=== PATIENT | male | born 1980 | race Caucasian/White ===

== ENCOUNTER 2017-02-23 14:48 | Emergency (ER) | payer OTHER ==
--- NOTE | 2017-02-23 15:11 | UC ---
Minor Trauma HPI - HPI Summary HPI Summary: 36 year old male presents with tailbone pain secondary to a fall. - History of Current Complaint Stated Complaint: FALL Time Seen by Provider: 02/23/17 15:09 Hx Obtained From: Patient Onset/Duration: Sudden Onset Severity Initially: Moderate Severity Currently: Moderate Pain Scale Used: 0-10 Numeric - 5 Mechanism Of Injury: Direct Blow Aggravating Factor(s): Nothing Alleviating Factor(s): Nothing - Allergies/Home Medications Allergies/Adverse Reactions: Allergies Allergy/AdvReac Type Severity Reaction Status Date / Time No Known Allergies Allergy Verified 02/23/17 15:12 PMH/Surg Hx/FS Hx/Imm Hx Previously Healthy: Yes - Surgical History Surgical History: None - Social History Substance Use Type: None Review of Systems Constitutional: Negative Skin: Negative Eyes: Negative ENT: Negative Respiratory: Negative Cardiovascular: Negative Gastrointestinal: Negative Genitourinary: Negative Motor: Negative Neurovascular: Negative Musculoskeletal: Other: - sacral pain Neurological: Negative Psychological: Negative All Other Systems Reviewed And Are Negative: Yes Physical Exam Triage Information Reviewed: Yes Vital Signs Reviewed: Yes Eye Exam: Normal ENT Exam: Normal Dental Exam: Normal Neck exam: Normal Neck: Positive: 1 Respiratory Exam: Normal Cardiovascular Exam: Normal Abdominal Exam: Normal Musculoskeletal: Positive: Other: - sacral/coccyx pain Neurological Exam: Normal Psychological Exam: Normal Skin Exam: Normal Diagnostics - Radiology radiology results of sacral fx reviewed and discussed with patient Xray Interpretation: Positive (See Comments) Minor Trauma Course/Dx - Differential Dx/Diagnosis Provider Diagnoses: sacral fx Discharge - Discharge Plan Condition: Stable Disposition: HOME Prescriptions: Meloxicam [Mobic] 7.5 mg PO BID PC #30 tab Patient Education Materials: Sacral Fracture (ED) Forms: *Work Release Referrals: Anmol Brennan MD [Medical Doctor] - No Primary Care Phys,NOPCP [Primary Care Provider] -
[2017-02-23 15:20] VITALS: BP 156/90
--- NOTE | 2017-02-23 15:20 | RAD ---
INDICATION: Sacrococcygeal injury. COMPARISON: There are no prior studies available for comparison. TECHNIQUE: 3 views of the sacrococcygeal spine were obtained. FINDINGS: The vertebra are in normal alignment. There is a calcific density anterior to a lower sacral segment possibly representing a fracture fragment. No other fractures are seen. IMPRESSION: POSSIBLE FRACTURE OF A LOWER SACRAL SEGMENT.
== END 2017-02-23 15:47 | disposition home or self-care (01) ==
LOC: UCEAST 14:48
DX: S32.10XA Unspecified fracture of sacrum, initial encounter for closed fracture (principal); W19.XXXA Unspecified fall, initial encounter; Y92.9 Unspecified place or not applicable
CPT/HCPCS: 72220; 99202; G0463

== ENCOUNTER 2018-11-22 13:31 | Emergency (ER) | payer SELFPAY ==
[2018-11-22 14:47] VITALS: BP 156/92
--- NOTE | 2018-11-22 15:25 | UC ---
Respiratory Complaint HPI - HPI Summary HPI Summary: pt has had URI symps over past 7 days, using Mucinex but not working, for past 2 days his cough is getting worse, not productive but feels it should be no SOB/CP, but is feeling fatigued - History of Current Complaint Chief Complaint: UCRespiratory Stated Complaint: URI Time Seen by Provider: 11/22/18 15:00 Hx Obtained From: Patient Onset/Duration: Gradual Onset Timing: Constant Severity Initially: Mild Severity Currently: Moderate Pain Intensity: 5 Character: Cough: Nonproductive Aggravating Factors: Exertion Associated Signs And Symptoms: Positive: URI, Nasal Congestion. Negative: Fever , Chills, Wheezing, Hemoptysis - Allergies/Home Medications Allergies/Adverse Reactions: Allergies Allergy/AdvReac Type Severity Reaction Status Date / Time No Known Allergies Allergy Verified 11/22/18 14:47 Home Medications: Home Medications guaiFENesin [Mucinex] 600 mg PO Q12HR 11/22/18 [History Confirmed 11/22/18] PMH/Surg Hx/FS Hx/Imm Hx Previously Healthy: Yes - Surgical History Surgical History: None Surgery Procedure, Year, and Place: right hand surgery - Family History Known Family History: Positive: None, Non-Contributory - Social History Occupation: Employed Full-time Lives: With Family Alcohol Use: Daily Substance Use Type: None Smoking Status (MU): Heavy Every Day Tobacco Smoker Household Exposure Type: Cigarettes Cessation Counseling: Patient Advised to Stop Review of Systems All Other Systems Reviewed And Are Negative: Yes Constitutional: Positive: Fatigue Skin: Positive: Negative Eyes: Positive: Negative ENT: Positive: Sinus Congestion. Negative: Sore Throat, Ear Ache Respiratory: Positive: Cough. Negative: Shortness Of Breath Cardiovascular: Positive: Negative. Negative: Chest Pain Musculoskeletal: Positive: Negative Neurological: Positive: Negative. Negative: Headache Psychological: Positive: Negative Is Patient Immunocompromised?: No Physical Exam Triage Information Reviewed: Yes Appearance: Well-Appearing, No Pain Distress, Well-Nourished Vital Signs: Initial Vital Signs Temp 98.9 F 11/22/18 14:42 Pulse 100 11/22/18 14:42 Resp 12 11/22/18 14:42 BP 156/92 11/22/18 14:42 Pulse Ox 98 11/22/18 14:42 Vital Signs Reviewed: Yes Eyes: Positive: Conjunctiva Clear ENT: Positive: Pharynx normal, Nasal congestion, TMs normal. Negative: Sinus tenderness Neck exam: Normal Neck: Positive: Supple, Nontender, No Lymphadenopathy Respiratory: Positive: Rhonchi, Other: - harsh slightly prod cough. Negative: Respiratory distress Cardiovascular Exam: Normal Cardiovascular: Positive: RRR Neurological Exam: Normal Psychological Exam: Normal Skin Exam: Normal Skin: Negative: Rashes Respiratory Course/Dx - Differential Dx/Diagnosis Differential Diagnosis/HQI/PQRI: Bronchitis, Lower Resp Infection, Sinusitis Provider Diagnosis: Bronchitis Discharge - Sign-Out/Discharge Documenting (check all that apply): Patient Departure All imaging exams completed and their final reports reviewed: No Studies - Discharge Plan Condition: Good Disposition: HOME Prescriptions: Azithromycin TAB* [Zithromax TAB (Z-DIANNA) 250 mg #6 tabs] 2 tab PO .TODAY, THEN 1 DAILY #1 dianna Patient Education Materials: Acute Bronchitis (ED), How to Stop Smoking (ED) Referrals: No Primary Care Phys,NOPCP [Primary Care Provider] - Additional Instructions: drink plenty of fluids start antibiotic and take as directed continue mucinex as directed return if your symptoms worsen - Billing Disposition and Condition Condition: GOOD Disposition: Home
== END 2018-11-22 15:49 | disposition home or self-care (01) ==
LOC: UCEAST 13:31
DX: J40 Bronchitis, not specified as acute or chronic (principal); F17.210 Nicotine dependence, cigarettes, uncomplicated
CPT/HCPCS: 99212; G0463

== ENCOUNTER 2018-11-28 13:49 | Emergency (ER) | payer SELFPAY ==
[2018-11-28] MEDS ORDERED: Albuterol/Ipratropium NEB.SOL* Albuterol 2.5 MG/Ipratropium 0.5 MG 3 ML INH ONE (15:29)
--- NOTE | 2018-11-28 15:33 | UC ---
Respiratory Complaint HPI - HPI Summary HPI Summary: 38-year-old male who was seen here on November 22, 2018 and diagnosed with an upper respiratory illness. He was started on a Z-Manuel and Mucinex. He states his cough is now productive of yellowish-green sputum. He is a smoker. He denies any fever or chills. He does state that he is mildly short of breath. - History of Current Complaint Stated Complaint: FOLLOW UP COUGH Time Seen by Provider: 11/28/18 15:26 Hx Obtained From: Patient Onset/Duration: Gradual Onset Timing: Intermittent Episodes Severity Initially: Mild Severity Currently: Mild Character: Cough: Productive - Productive cough of yellowish-green sputum. Aggravating Factors: Nothing Alleviating Factors: Nothing Associated Signs And Symptoms: Positive: Wheezing, URI, Nasal Congestion - Allergies/Home Medications Allergies/Adverse Reactions: Allergies Allergy/AdvReac Type Severity Reaction Status Date / Time No Known Allergies Allergy Verified 11/22/18 14:47 PMH/Surg Hx/FS Hx/Imm Hx Previously Healthy: Yes - Surgical History Surgical History: None Surgery Procedure, Year, and Place: right hand surgery - Family History Known Family History: Positive: None, Non-Contributory - Social History Alcohol Use: Daily Substance Use Type: None Smoking Status (MU): Heavy Every Day Tobacco Smoker Household Exposure Type: Cigarettes Review of Systems All Other Systems Reviewed And Are Negative: Yes ENT: Positive: Nasal Discharge Respiratory: Positive: Shortness Of Breath - Patient states he is occasionally short of breath. He does continue to smoke., Cough - Productive cough of yellowish-green sputum. Is Patient Immunocompromised?: No Physical Exam Triage Information Reviewed: Yes Appearance: Well-Appearing, No Pain Distress, Well-Nourished Vital Signs Reviewed: Yes Eyes: Positive: Conjunctiva Clear ENT: Positive: Hearing grossly normal, Pharynx normal, TMs normal, Uvula midline Neck: Positive: Supple, Nontender, No Lymphadenopathy Respiratory: Positive: No respiratory distress, No accessory muscle use, Rhonchi - Scattered rhonchi with some minimal wheezing in all lung ospina. No Distress., Wheezing Musculoskeletal Exam: Normal Neurological Exam: Normal Psychological Exam: Normal Skin Exam: Normal Re-Evaluation - Re-Evaluation First Eval Change: Improved - Patient states that the DuoNeb treatment helped and he has increased aeration throughout all lung ospina. He continues to have scattered rhonchi and minimal wheezing. Respiratory Course/Dx - Course Course Of Treatment: Patient is given a DuoNeb treatment here. Patient states he felt like he had increased aeration and was feeling like he could take a better breath. Chest x-ray:No mediastinal shift is noted. Heart is of normal size and configuration. Left perihilar infiltrate is noted. Right lung field is clear. IMPRESSION: Left perihilar infiltrate consistent with pneumonia although a left hilar mass is not excluded and follow-up exam and CT of the chest with contrast is suggested after treatment. I discussed the need for CT of the chest with the patient and definite follow- up because he has no primary care provider therefore I gave him information regarding the physician referral service as well as [facility]. I stressed the need need for him to stop smoking. He is to call [facility] on Friday and make an appointment for follow-up. - Differential Dx/Diagnosis Provider Diagnosis: Pneumonia Discharge - Sign-Out/Discharge Documenting (check all that apply): Patient Departure All imaging exams completed and their final reports reviewed: Yes - Discharge Plan Condition: Fair Disposition: HOME Prescriptions: DOXYcycline CAP(*) [DOXYcycline 100MG CAP(*)] 100 mg PO BID 10 Days #20 cap predniSONE [Prednisone 20 MG TAB] 40 mg PO DAILY 5 Days #10 tablet Patient Education Materials: Pneumonia (ED) Referrals: No Primary Care Phys,NOPCP [Primary Care Provider] - [facility] [Outside] Additional Instructions: Increase fluids, stop smoking. No dairy products, antacids or multivitamins 2 hours before you take the doxycycline and 2 hours after you take it however take it with food because sometimes it can cause some nausea. Take the prednisone with food. Definite follow up at [facility] on Friday by telephone to schedule an appointment. It is imperative that you follow-up with them and they may decide to do the CAT scan of your chest then or at a later date. Go to the emergency room if you have any difficulty breathing, worsening symptoms. - Billing Disposition and Condition Condition: FAIR Disposition: Home
[2018-11-28 15:34] VITALS: BP 149/91
== END 2018-11-28 16:55 | disposition home or self-care (01) ==
LOC: UCEAST 13:49
DX: J18.9 Pneumonia, unspecified organism (principal); F17.210 Nicotine dependence, cigarettes, uncomplicated
CPT/HCPCS: 71046; 99212; A9270-GY; G0463